=== PATIENT | female | born 1985 | race Caucasian/White ===

== ENCOUNTER 2019-10-14 10:32 | Observation (INO) ==
--- NOTE | 2019-10-13 08:33 | Anesthesiology Consultation ---
Date of Service October 13, 2019 Assessment & Plan (1) Encounter for pre-operative examination: Chart Review Chart Review: Acceptable Risk for Surgery (pending DOS testing ) and Patient NOT seen in Pre Admission Testing No preop testing order by surgeon- pt is next day add on. Due to BMI- will order CBC with diff, PRP and EKG for stat AM of surgery. - Check test AM DOS Per 10/13/19 nursing assessment, pt resides in [facility]. No recent travel. Uses PPE. No known Covid positive contacts or Covid related symptoms. Covid test 10/12/19= negative History Surgery Operation Date: 10/14/19 12:00 Proposed Procedures p Laparoscopic Appendectomy - Gloria Wall MD Height/Weight Height: 5 ft 1 in Weight: 97.522 kg Allergies Allergy/AdvReac Type Severity Reaction Status Date / Time No Known Allergies Allergy Unknown Verified 10/13/19 07:56 Medications Home Medications Medication Instructions Recorded Confirmed Last Taken No Known Home Medications 01/17/18 10/13/19 Unknown amoxicillin 875 mg PO BID 10/13/19 10/13/19 Unknown Past Medical History Medical History Appendicitis Lap appy planned 10/13 Past Surgical History Surgical History Hx laparoscopic cholecystectomy Hx of section Social History Smoking Status: Never smoker Do You Dip or Chew Tobacco: No Hx Alcohol Use: Yes alcohol intake frequency: holidays/special occasions only Hx Substance Use: No substance use type: does not use
[~2019-10-14 10:32] MED LIST: LACTATED RINGER'S 1,000 ML IV SCH; cefOXitin 2,000 MG in DEXTROSE 5% 50 ML IV SCH
[2019-10-14 11:12] LABS: Basophils # (auto) 0.04 K/uL (0-0.2); Basophils % (auto) 0.5 %; Eosinophils # (auto) 0.08 K/uL (0-0.5); Hematocrit (blood only) 41.8 % (37-47); Immature Granulocytes # (auto) 0.01 K/uL (0.00-0.02); Immature Granulocytes % (auto) 0.1 %; Lymphocytes # (auto) 2.29 K/uL (1.2-3.4); Lymphocytes % (auto) 29.4 %; Mean Corpuscular Hemoglobin 29.4 pg (25-34); Mean Corpuscular Volume 87.6 fL (80-100); Mean Platelet Volume 9.4 fL (7.4-10.4); Monocytes # (auto) 0.63 K/uL (0.11-0.59); Monocytes % (auto) 8.1 %; Neutrophils # (auto) 4.75 K/uL (1.4-6.5); Neutrophils % (auto) 60.9 %; Platelet Count 288 K/uL (130-400); RDW Coefficient of Variation 13.1 % (11.5-14.5); RDW Standard Deviation 42.2 fL (36.4-46.3); Red Blood Count 4.77 M/uL (4.2-5.4)
[2019-10-14 11:27] LABS: Mean Corpuscular Hgb Conc 33.5 g/dL (32-36)
[2019-10-14 11:28] LABS: BUN Creatinine Ratio 14.4 (10-20); Calcium 9.5 mg/dl (8.5-10.1); Est GFR (African American) 125.4; Est GFR (Non-African American) 108.2; Potassium 3.9 mmol/L (3.5-5.1)
[2019-10-14] MEDS ORDERED: cefOXitin 2,000 MG in DEXTROSE 5% 50 ML IV STA (11:51)
--- NOTE | 2019-10-14 11:51 | History & Physical Bridge Note ---
Date of Service October 14, 2019 History & Physical Bridge Note I have examined the patient, reviewed the History & Physical and in the interval since the performance of the History & Physical I have noted the following changes of clinical significance: no changes noted
[2019-10-14] MEDS ORDERED: LIDOCAINE HCL 1% 20 ML VIAL ONE (11:53)
[2019-10-14] MEDS ORDERED: MIDAZOLAM HCL 1 MG/ML 2ML VIAL ONE (11:53)
[2019-10-14] MEDS ORDERED: BUPIVACAINE 0.5 % 5 MG/1 ML MPF 30ML VIAL ONE (11:53)
[2019-10-14] MEDS ORDERED: BACITRACIN OINT 15 GM TUBE ONE (11:53)
[2019-10-14] MEDS ORDERED: ONDANSETRON INJ 2 MG/ML 2 ML VIAL ONE (11:56)
[2019-10-14] MEDS ORDERED: ROCURONIUM BROMIDE 10 MG/ML 5 ML VIAL IV ONE (11:56)
[2019-10-14] MEDS ORDERED: DEXAMETHASONE SOD INJ 4 MG/ML VIAL ONE (11:56)
[2019-10-14] MEDS ORDERED: PROPOFOL IV EMULSION 10 MG/ML 20 ML VIAL IV ONE (11:56)
[2019-10-14] MEDS ORDERED: fentaNYL citrate 100 MCG/2 ML VIAL ONE ×2 (11:56→12:23)
[2019-10-14] MEDS ORDERED: LIDOCAINE HCL 2% 2 ML VIAL/AMP(20MG/ML) INFIL ONE (11:56)
[2019-10-14] MEDS ORDERED: KETOROLAC 30 MG/ML VIAL IV PRN (12:01)
[2019-10-14] MEDS ORDERED: ATROPINE SULFATE 0.1 MG/ML 10ML SYR IV PRN (12:01)
[2019-10-14] MEDS ORDERED: ONDANSETRON INJ 2 MG/ML 2 ML VIAL IV PRN ×2 (12:01→13:13)
[2019-10-14] MEDS ORDERED: NEOSTIGMINE METHYLSULFATE 5 MG/5 ML SYR ONE (12:51)
[2019-10-14] MEDS ORDERED: GLYCOPYRROLATE 0.2 MG/ML VIAL ONE (12:51)
--- NOTE | 2019-10-14 13:08 | Post Operative Brief Note ---
Immediate Post Op Note v1 Date of Surgery October 14, 2019 Pre & Post Diagnosis Operation Date: 10/14/19 12:00 Pre-Op Diagnosis: Chronic Appendicitis Post-Op Diagnosis: Chronic Appendicitis I identified the patient and participated in the time-out.: Yes Procedure Operation Date: 10/14/19 12:00 Actual Procedures p Laparoscopic Appendectomy, Lysis of Adhesions(Not Applicable) - Gloria Wall MD Surgeon Gloria Wall MD Business Intelligence Administrator surgical services tech Estimated Blood Loss 5 Findings Consistent with Post-Op Diagnosis chronic appendicitis, intra-abdomen adhesion Fluids 1000ml Specimens appendix Anesthesia Type General Complications none Disposition Accompanied Patient To Recovery: Yes Disposition: Recovery Room Overlapping Procedure I was immediately available: during the entire case.
[2019-10-14] MEDS ORDERED: LABETALOL HCL IV 5 MG/ML 20ML IV ONE (13:31)
--- NOTE | 2019-10-14 13:41 | Operative Report (OR) ---
DATE OF OPERATION: 10/14/2019 PREOPERATIVE DIAGNOSIS: Chronic appendicitis. POSTOPERATIVE DIAGNOSIS: Chronic appendicitis. OPERATION: Laparoscopic appendectomy, lysis of adhesion. SURGEON: Gloria Wall MD. ANESTHESIA: General. WINDOWS CONSULTANT: bench repair technician. ESTIMATED BLOOD LOSS: About 5 mL. FINDINGS: Chronic appendicitis with enlarged appendix and intra-abdominal cavity adhesion. COMPLICATIONS: None. INDICATIONS FOR THE PROCEDURE: This is a 34-year-old female who presented with right lower quadrant pain. The patient had a CT scan diagnosis of acute appendicitis about 1 week ago and patient required to do the laparoscopic appendectomy, possible open. I did talk to the patient about the benefit, risk, alternate procedure. I indicated the risks may include but not limited to such as bleeding, infection, injury to the bowel, abscess, bowel obstruction, incisional hernia. The patient understands. She signed informed consent and I answered all questions. DETAILS OF PROCEDURE: We brought the patient to the OR, put the patient in the supine position. The patient received SCD on bilateral legs to prevent DVT. Also, patient received 2 g of cefoxitin IV for prophylactic antibiotic. The patient received general anesthesia without difficulty. The abdomen was prepped and draped in routine sterile fashion. After timeout, I injected local anesthesia by using 1% lidocaine mixed with 0.5% Marcaine just above the umbilicus. Then, I made a small incision just above the umbilicus, opened fascia, opened peritoneum under direct vision, put a Crystal trocar in, connected to CO2 to create pneumoperitoneum, flow rate at 6 liters per minute, pressure not more than 14 mmHg. Then, we put the camera in, looked around the abdomen showing there are significant adhesions just below the umbilicus. There is an old incision from the patient's gallbladder surgery in the past. At this moment, we put another two 5 mm trocars on the left lower quadrant area and we used Bovie to take down the adhesions to the anterior abdominal wall. Once we took down the adhesions, all of the omental fat attached to the abdominal wall. Once we took down, rechecked, no active bleeding and no injury to the bowel, then we could reach of the appendix. Now, we found the patient had a significantly enlarged appendix with appendix diameter of about 1.2 cm with chronic inflammation around the appendix that confirmed the diagnosis of chronic appendicitis. At this moment, we used the harmonic to take down appendiceal, rechecked, no active bleeding. Then, we used a 45 mm Endo-ANJANA staple for transection on the base of appendix, rechecked, the staple line intact, no active bleeding, no leak. Then we removed the appendix through the catch bag. Then we reinserted the Crystal trocar in, connected to CO2 to create pneumoperitoneum, again looked around the abdomen, no active bleeding, no leak from the staple line and no injury to the bowel. Then we removed all trocars under direct vision. No active bleeding from the trocar site. Pneumoperitoneum was released. Then I closed the umbilical incision, fascial layer by using #1 Vicryl [id number] x2, closed subcutaneous layer by using 2-0 Vicryl interruptedly, closed skin by using 4-0 Vicryl continuous running, closed another two 5 mm trocar site skin only by using 4-0 Vicryl. Then, we put the dressing on. The patient tolerated the procedure well. All instrument, needle and sponge count were correct x2 at the end of the case. The patient was transferred to recovery room in stable condition. The specimen was sent to pathology. After the procedure, I did talk to the patient and family member about the OR finding and the procedure we did, and I recommended that the patient stay overnight in the hospital, they understand and they agreed. I attest to the content of the Intraoperative Record and any orders documented therein. Any exception s are noted below.
[2019-10-14] MEDS: fentaNYL citrate 100 MCG/2 ML VIAL IV PRN ×2 (13:45→13:50)
--- NOTE | 2019-10-14 13:51 | Electrocardiogram Report ---
Test Reason : Blood Pressure : / mmHG Vent. Rate : 094 BPM Atrial Rate : 094 BPM P-R Int : 142 ms QRS Dur : 078 ms QT Int : 352 ms P-R-T Axes : 019 033 033 degrees QTc Int : 440 ms Normal sinus rhythm Normal ECG No previous ECGs available Confirmed by Kemal Morel ([id number]) on 10/14/2019 1:50:37 PM Referred By: Gloria Wall Confirmed By:Kemal Morel
--- NOTE | 2019-10-14 14:47 | Anesthesiology Progress Note ---
Date of Service October 14, 2019 Anesthesia Post Procedure Vital Signs Vital Signs: Temp Pulse Pulse Resp BP BP Pulse Ox 10/14/19 14:30 94 H 16 114/61 94 10/14/19 14:15 90 18 132/72 93 10/14/19 14:00 36.5 C 82 15 121/72 95 10/14/19 13:50 90 16 130/75 95 10/14/19 13:40 81 18 129/75 100 10/14/19 13:30 79 15 143/82 H 100 10/14/19 13:24 36.3 C L 97 H 16 137/99 95 10/14/19 10:51 36.7 C 99 H 18 150/100 H 98 Pain Intensity Abdomen: Pain Intensity: 3 Transfer of Care Handoff Completed per policy Notes Mental Status: alert / awake / arousable and participated in evaluation Patient Amnestic to Procedure: Yes Nausea / Vomiting: adequately controlled Pain: adequately controlled Airway Patency, RR, SpO2: stable & adequate BP & HR: stable & adequate Hydration State: stable & adequate Anesthetic Complications: no major complications apparent and Pt Satisfied with anesthetic care
[2019-10-14] MEDS ORDERED: HYDROmorphone INJ 0.5 MG/0.5 ML SYR IV PRN (15:15)
[2019-10-14] MEDS: OXYCODONE/ACETAMINOPHEN 5mg/325mg TAB PO PRN (18:20)
[2019-10-14] MEDS ORDERED: AMOXICILLIN 875 MG PO SCH (21:00)
[2019-10-15] MEDS: OXYCODONE/ACETAMINOPHEN 5mg/325mg TAB PO PRN (00:01)
[2019-10-15] MEDS: LACTATED RINGER'S 1,000 ML IV SCH ×2 (00:31→04:14)
[2019-10-15 06:18] LABS: Basophils # (auto) 0.01 K/uL (0-0.2); Basophils % (auto) 0.1 %; Hematocrit (blood only) 38.5 % (37-47); Hemoglobin 12.4 g/dL (12.0-16.0); Immature Granulocytes # (auto) 0.02 K/uL (0.00-0.02); Immature Granulocytes % (auto) 0.2 %; Lymphocytes # (auto) 1.11 K/uL (1.2-3.4); Lymphocytes % (auto) 11.1 %; Mean Corpuscular Hgb Conc 32.2 g/dL (32-36); Mean Platelet Volume 9.5 fL (7.4-10.4); Monocytes # (auto) 0.52 K/uL (0.11-0.59); Monocytes % (auto) 5.2 %; Neutrophils % (auto) 83.4 %; Platelet Count 314 K/uL (130-400); RDW Coefficient of Variation 13.5 % (11.5-14.5); RDW Standard Deviation 44.5 fL (36.4-46.3); Red Blood Count 4.28 M/uL (4.2-5.4); White Blood Count 9.96 K/uL (4.8-10.8)
--- NOTE | 2019-10-15 08:21 | Anesthesiology Progress Note ---
Date of Service October 15, 2019 Anesthesia Post Procedure Vital Signs Vital Signs: Temp Pulse Pulse Pulse Resp BP BP 10/15/19 07:41 36.7 C 77 16 100/61 10/15/19 03:13 36.8 C 80 18 119/72 10/14/19 23:26 36.7 C 74 18 128/86 10/14/19 18:10 37.0 C 103 H 18 112/71 10/14/19 16:58 37.0 C 100 H 16 114/74 10/14/19 16:00 36.9 C 95 H 16 120/75 10/14/19 15:30 36.9 C 95 H 16 122/75 10/14/19 15:00 36.7 C 95 H 16 124/77 10/14/19 14:45 85 18 117/63 10/14/19 14:30 94 H 16 114/61 10/14/19 14:15 90 18 132/72 10/14/19 14:00 36.5 C 82 15 121/72 10/14/19 13:50 90 16 130/75 10/14/19 13:40 81 18 129/75 10/14/19 13:30 79 15 143/82 H 10/14/19 13:24 36.3 C L 97 H 16 137/99 10/14/19 10:51 36.7 C 99 H 18 150/100 H Pulse Ox 10/15/19 07:41 97 10/15/19 03:13 96 10/14/19 23:26 97 10/14/19 18:10 95 10/14/19 16:58 95 10/14/19 16:00 95 10/14/19 15:30 95 10/14/19 15:00 95 10/14/19 14:45 94 10/14/19 14:30 94 10/14/19 14:15 93 10/14/19 14:00 95 10/14/19 13:50 95 10/14/19 13:40 100 10/14/19 13:30 100 10/14/19 13:24 95 10/14/19 10:51 98 Pain Intensity Abdomen: Pain Intensity: 2 Notes Mental Status: alert / awake / arousable and participated in evaluation Patient Amnestic to Procedure: Yes Nausea / Vomiting: adequately controlled Pain: adequately controlled Airway Patency, RR, SpO2: stable & adequate BP & HR: stable & adequate Hydration State: stable & adequate Anesthetic Complications: no major complications apparent and Pt Satisfied with anesthetic care
[2019-10-15] MEDS ORDERED: ACETAMINOPHEN 325 MG TAB PO PRN (08:34)
[2019-10-15] MEDS ORDERED: DOCUSATE SODIUM 100 MG CAP PO ONE (09:57)
--- NOTE | 2019-10-15 10:06 | Discharge Summary ---
Date of Service October 15, 2019 Admission HPI Per Admitting Provider Chula presented to [facility] for outpatient laparoscopic appendectomy for history of chronic appendicitis. Patient was taken to operating room by Dr. Wall for laparoscopic appendectomy. Principal Diagnosis Chronic appendicitis Discharge Exam Constitutional WD/WN, vitals as above no acute distress Respiratory normal respiratory effort; no respiratory distress Gastrointestinal (Abdomen) Inspection/Auscultation: abdomen normal to inspection and + abdominal surgical incision (covered with dry dressings); abdomen not distended Percussion/Palpation: + abdomen tender (very mild at incision sites) and abdomen soft; no guarding and abdomen not rigid Skin no rashes, warm and dry Psychiatric A+Ox3, euthymic affect Discharge Data Allergies Allergy/AdvReac Type Severity Reaction Status Date / Time No Known Allergies Allergy Unknown Verified 10/14/19 10:49 Procedures Performed Operation Date: 10/14/19 12:00 Actual Procedures p Laparoscopic Appendectomy, Lysis of Adhesions(Not Applicable) - Gloria Wall MD Hospital Course (1) Chronic appendicitis: Patient taken to operating room for laparoscopic appendectomy by Dr. Wall. Patient found to have intra-abdominal adhesions to the anterior abdominal wall from prior laparoscopic cholecystectomy which were taken down. Appendix showed signs of chronic inflammation and dilatation. Patient tolerated procedure well and was transferred to recovery then to medical/surgical floor for postoperative care. Her diet was advanced to clear liquids. PO Percocet and IV DIlaudid prn pain. IV Zofran prn nausea. SCDs and activity as tolerated. She was also given IV Cefoxitin for postop antibiotic dose x 2. POD # 1 , vitals stable, afebrile. Pain mild and controlled with PO Percocet. Tolerated clear liquids. Ambulating and urianting without difficulty. Patient was discharged home on POD # 1 in stable condition. Total Time Total Time Spent Total Time Spent (In Minutes): 20 Discharge Plan Discharge Items Patient Disposition: Home - Self-Care Reason For Visit: Chronic Appendicitis Discharge Diagnosis: Chronic appendicitis Activity: Per Instructions section Non-emergency contact: Surgeon Call non-emergency contact if: your pain is not controlled, your pain is worsening, your pain is concerning for you, you have a fever, your temperature is above 101, your wound has increased redness, your wound has increased drainage and your wound pain has increased Follow-up/Referrals: Fanny Bailon, [Primary Care Provider] - Diet: Regular Addtl Attending Provider Instructions: Post-Surgical ~Discharge Instructions Activity Recommendations: - lifting limitation: (25 pounds for 4 weeks), - exercise/sex/sports limit: (nonstrenuous for 2 weeks), - driving or machine use limit: (none for 1 week or until you are pain free or not taking narcotic pain medication), - Shower/bathe limit: (june shower beginning Friday) Diet: - Resume previous diet SPECIAL CARE INSTRUCTIONS: - May shower beginning Friday. Sponge bath around incisions and wash hair in meantime. On Friday, remove outer dressings and shower. Let water run over area and pat dry. - Leave steri strips on for one week and then remove. - Call the surgeon's office with any questions or concerns - - (ex. temperature higher than 101 degrees F, excessive bleeding or pain). MEDICATIONS: - Resume previous medications unless instructed otherwise by your surgeon. - You may take extra strength Tylenol or Ibuprofen as needed for mild pain -650 mg Tylenol every 6 hours as needed - Ibuprofen 600 mg every 6 hours with food - Percocet 1 every 4 hours, as needed for moderate to severe pain - Recommend stool softener (Colace) daily while taking narcotic pain medication. FOLLOW UP VISIT: - If not already scheduled, please call the office to schedule a two week follow-up appointment. Office number Pending Studies at Discharge: Yes (appendix pathology, will be reviewed at follow-up visit) Stand-Alone Forms: My [facility], Work/School Release (Inpt), Smoking Cessation Medications and DC Order Prescriptions: New oxycodone-acetaminophen 5-325 mg tablet 1 tab PO Q4H PRN (Reason: pain) Qty: 10 RF: 0 Discontinued amoxicillin 875 mg Tablet 875 mg PO BID RF: 0 No Action No Known Home Medications RF: 0 Discharge Orders: Discharge Order (Routine); Ordered 10/15/19 Ordered By: Sasha Rainey Admission Data Admit Date/Time: 10/14/19 13:13 Attending Provider: Gloria Wall Admit Provider: Gloria Wall Primary Care Provider: Fanny Bailon
== END 2019-10-15 11:45 | disposition home or self-care (01) ==
LOC: ASU 10:32 → 3N 10:32

== ENCOUNTER 2022-03-26 05:35 | Inpatient (IN) ==
--- NOTE | 2022-03-18 14:00 | Anesthesiology Consultation ---
Date of Service March 18, 2022 Assessment & Plan (1) Encounter for pre-operative examination: COVID screening: Per assessment on 03/18: No known COVID-19 positive contacts or current COVID-19 related symptoms. Travel screen negative. Patient vaccinated. At surgeon discretion if preop Covid testing being done. Chart Review Chart Review: viscose department worker initiated History Surgery Operation Date: 03/26/22 07:30 Proposed Procedures p Repeat Section - Home Salinas MD Height/Weight Height: 5 ft 1 in Weight: 103.419 kg Allergies Allergy/AdvReac Type Severity Reaction Status Date / Time No Known Allergies Allergy Unknown Verified 03/18/22 13:18 Medications Home Medications Medication Instructions Recorded Confirmed Last Taken 1 cap PO QPM 03/18/22 03/18/22 Unknown insulin detemir U-100 100 unit/mL 50 unit subcut HS 03/18/22 03/18/22 Unknown subcutaneous solution (Levemir U-100 Insulin) Past Medical History Medical History (Updated 03/18/22 @ 14:04 by Leda Schofield) Conductive hearing loss Gestational diabetes Past Family History Family History Other No family history of adverse response to anesthesia Past Surgical History Surgical History History of appendectomy Hx laparoscopic cholecystectomy Hx of section Social History Smoking Status: Never smoker Do You Dip or Chew Tobacco: No Hx Alcohol Use: No alcohol intake frequency: holidays/special occasions only Hx Substance Use: No substance use type: does not use
[2022-03-26] MEDS ORDERED: LACTATED RINGER'S 1,000 ML IV SCH (05:45)
[2022-03-26] MEDS ORDERED: CITRIC ACID/SODIUM CITRATE 15 ML UDC PO SCH (06:00)
[2022-03-26 06:33] LABS: Basophils # (auto) 0.03 K/uL (0-0.2); Basophils % (auto) 0.4 %; Eosinophils # (auto) 0.07 K/uL (0-0.50); Hematocrit (blood only) 33.5 % (37.0-47.0); Hemoglobin 11.4 g/dl (12.0-16.0); Immature Granulocytes # (auto) 0.02 K/uL (0.01-0.20); Immature Granulocytes % (auto) 0.3 %; Lymphocytes % (auto) 25.3 %; Mean Corpuscular Hemoglobin 29.3 pg (25.0-34.0); Mean Corpuscular Volume 86.1 fL (80.0-100.0); Mean Platelet Volume 9.7 fL (9.4-12.4); Monocytes # (auto) 0.66 K/uL (0.11-0.59); Monocytes % (auto) 9.8 %; Neutrophils # (auto) 4.23 K/uL (1.40-6.50); Neutrophils % (auto) 63.2 %; Platelet Count 253 K/uL (130-400); RDW Coefficient of Variation 13.3 % (11.5-14.5); RDW Standard Deviation 41.7 fL (36.4-46.3); Red Blood Count 3.89 M/uL (4.20-5.40); White Blood Count 6.71 K/ul (4.8-10.8)
[2022-03-26] MEDS ORDERED: SODIUM CHLORIDE 0.9% 250 ML IV PRN (06:35)
[2022-03-26] MEDS ORDERED: ONDANSETRON INJ 2 MG/ML 2 ML VIAL ONE (06:57)
[2022-03-26] MEDS ORDERED: OXYTOCIN 10 UNITS/ML 10ML VIAL ONE (06:57)
[2022-03-26] MEDS ORDERED: KETOROLAC 30 MG/ML VIAL ONE (06:57)
[2022-03-26] MEDS ORDERED: PHENYLEPHRINE HCL 10 MG/ML VIAL ONE (06:57)
[2022-03-26] MEDS ORDERED: MoRPHine SULFATE PF 1 MG/ML 10 ML AMP/VIAL ONE (06:58)
[2022-03-26] MEDS ORDERED: fentaNYL citrate 100 MCG/2 ML VIAL ONE (06:58)
--- NOTE | 2022-03-26 07:33 | History & Physical Bridge Note ---
Date of Service March 26, 2022 History & Physical Bridge Note I have examined the patient, reviewed the History & Physical and in the interval since the performance of the History & Physical I have noted the following changes of clinical significance: no changes noted
[2022-03-26] MEDS ORDERED: LIDOCAINE 2%/EPINEPHRINE 1:200,000 20 ML SDV ONE (08:43)
[2022-03-26] MEDS ORDERED: SODIUM BICARBONATE 8.4% INJ 50 MEQ/50 ML VIAL ONE (08:43)
[2022-03-26] MEDS ORDERED: ACETAMINOPHEN 1,000 MG/100 ML VIAL IV PRN (08:51)
[2022-03-26] MEDS ORDERED: PROMETHAZINE HCL 12.5 MG in SODIUM CHLORIDE 0.9% 50 ML IV PRN (08:51)
[2022-03-26] MEDS ORDERED: LACTATED RINGER'S 500 ML IV PRN (08:51)
[2022-03-26] MEDS ORDERED: NALOXONE HCL 0.08 MG in SYRINGE 1.8 ML IV PRN (08:51)
[2022-03-26] MEDS ORDERED: HYDROmorphone INJ 0.5 MG/0.5 ML SYR IV PRN (08:51)
[2022-03-26] MEDS ORDERED: NALOXONE HCL 1 MG in SODIUM CHLORIDE 0.9% 1000ML 1,000 ML IV PRN (08:51)
[2022-03-26] MEDS ORDERED: ONDANSETRON INJ 2 MG/ML 2 ML VIAL IV PRN (08:51)
[2022-03-26] MEDS ORDERED: NALOXONE HCL 0.4 MG/1 ML VIAL/CARP IV PRN (08:51)
[2022-03-26] MEDS ORDERED: diphenhydrAMINE 50 MG/ML VIAL IV PRN (08:51)
[2022-03-26] MEDS ORDERED: ePHEDrine sulfate 50 MG/ML AMP IV PRN (08:51)
[2022-03-26] MEDS ORDERED: MoRPHine SULFATE PF 1 MG/ML 10 ML AMP/VIAL EPI ONE (08:51)
[2022-03-26] MEDS ORDERED: NALBUPHINE HCL INJ 10 MG/ML AMP IV PRN (08:51)
[2022-03-26] MEDS ORDERED: NO NARCOTICS OR SEDATIVES SCH (09:00)
[2022-03-26] MEDS ORDERED: SODIUM CHLORIDE 0.9% 1000ML 1,000 ML IV SCH (09:00)
[2022-03-26] MEDS ORDERED: DC INTRASPINAL MORPHINE SCH (09:00)
[2022-03-26] MEDS ORDERED: MAGNESIUM HYDROXIDE SUSP 30 ML UDC PO PRN (09:46)
[2022-03-26] MEDS ORDERED: SENNA 8.6 MG TAB PO PRN (09:46)
[2022-03-26] MEDS ORDERED: DIPHTHERIA/TETANUS/PERTUSSIS 0.5mL SYR/VIAL (Age 7+yrs) IM ONE (09:46)
[2022-03-26] MEDS ORDERED: HYDROCORTISONE ACETATE 25 MG SUPP PR PRN (09:46)
[2022-03-26] MEDS ORDERED: BENZOCAINE 20% AER SPR 82.5 GM CAN EXT PRN (09:46)
--- NOTE | 2022-03-26 09:57 | Post Operative Brief Note ---
Immediate Post Op Note v1 Date of Surgery March 26, 2022 Pre & Post Diagnosis Operation Date: 03/26/22 07:30 <No data on this case meets the specified criteria> I identified the patient and participated in the time-out.: Yes Procedure Operation Date: 03/26/22 07:30 Actual Procedures p Repeat Section of live female child at 0846 - Home Lagos MD s Bilateral salpingectomy - Home Salinas MD Surgeon Home Salinas MD Compressor Service Technician CLAUDIA Garibay Estimated Blood Loss 700 Findings Consistent with Post-Op Diagnosis Drains Gale Catheter Anesthesia Type Labor Epidural Complications none Disposition Accompanied Patient To Recovery: Yes
--- NOTE | 2022-03-26 10:35 | Operative Report (OR) ---
DATE OF SURGERY: 03/26/2022. PREOPERATIVE DIAGNOSES: The patient is a 36-year-old G2, P1-0-0-1, at 39 weeks and 1 day of gestation, who has a history of a prior section and desired for a repeat section and permanent sterilization. POSTOPERATIVE DIAGNOSES: The patient is a 36-year-old G2, P1-0-0-1, at 39 weeks and 1 day of gestation, who has a history of a prior section and desired for a repeat section and permanent sterilization. PROCEDURE: Repeat low transverse with Pfannenstiel skin incision, extensive lysis of adesions and bilateral salpingectomy. SURGEON: Home Salinas MD TREER: CLAUDIA Garibay and CLAUDIA Kim ESTIMATED BLOOD LOSS: 700 mL FLUIDS: 1500 mL of lactated Ringer's. DRAINS: Gale catheter drained 500 mL of clear urine. ANESTHESIA: Epidural. ANESTHESIOLOGIST: Dr. Rivera. COMPLICATIONS: None. FINDINGS: Baby was a viable female delivered at 08:46 a.m. in cephalic presentation. Apgars were 9/9, weight is 3339 gr. Maternal findings: There were adhesions between the anterior uterine serosa and parietal peritoneum as well as between the omentum and the uterine wall and otherwise normal uterus, fallopian tubes, and ovaries. DESCRIPTION OF PROCEDURE: The patient was taken to the operating room where epidural anesthesia was given by Dr. Rivera. She was placed in dorsal supine position with a leftward tilt. She was prepared and draped in the usual sterile fashion. A Pfannenstiel skin incision was made from the old incision scar and carried through to the underlying layer of fascia with the Bovie. Fascia was incised in the midline and incision was extended laterally with the help of Shine scissors. Upper aspect of the fascial incision was grasped with 2 Bereket clamps, elevated, and underlying rectus muscles were dissected off sharply with Shine scissors and bluntly with fingers. Same thing was done on the lower aspect of the fascial incision. The peritoneum was already open and it was entered with 2 fingers and elevated, and then it was extended downwards until the adhesion. There were adhesions between the anterior uterus and anterior abdominal wall to the parietal peritoneum. Those were reduced gently with a tip of Metzenbaum scissors, while holding up with my fingers around the adhesions, making sure there was no bladder under it. It was brought down until to the lower uterine segment. While doing that, vesicouterine peritoneum was already opened due to being involved in this adhesion. There were some omentum edges attached to the lateral uterine carr. Those were also held up and reduced with a tip of hemostat and they were hemostatic. Then we made sure that we have enough opening on the abdominal wall and the bladder was down into the pelvis and far from this opening. An Altaf abdominal retractor was placed to the abdominal wall to provide retraction during surgery and then the lower uterine segment was incised in a transverse fashion. Incision was extended laterally with the help of bandage scissors. Membranes were ruptured. Clear fluid was obtained. Baby's head was delivered without difficulty. The left arm and shoulder was delivered together without difficulty and then whole baby came out easily. Mouth and nose were suctioned. Cord was clamped x2 and cut at 1 minute delay. Baby was vigorously moving and crying at that point and then baby was taken to the pediatric team with Dr. Stephenson. The placenta was delivered manually as intact and complete. Uterus was exteriorized and cleared of all clots and debris. Uterine incision was repaired with 0 Vicryl in a running locked fashion and a second layer was placed, another 0 Vicryl to imbricate the first layer and it was hemostatic and the cul-de-sac was irrigated with warm normal saline and suctioned. Both fallopian tubes and ovaries were checked to be normal. Per patient's request for sterilization, the fallopian tubes were held with Emile clamps and dissected off with the handheld LigaSure device fro, avascular sites of mesosalpinx. bilaterally. They were sent to the pathology and the mesosalpinx was hemostatic bilaterally. Bilateral salpingectomy was completed. No bleeding happened and then incision was checked to be hemostatic again. Uterus was returned to the patient's abdomen. It was irrigated with warm normal saline and suctioned. Incision was checked again, hemostatic. Parietal peritoneum was reapproximated with 0 Vicryl in a running fashion and the rectus muscles were reapproximated with 2-0 Vicryl in a running fashion. Excellent hemostasis was achieved. Then, the rectus fascia was reapproximated with #1 Vicryl in a running fashion. Subcuticular fat tissue was brought together with a 3-0 Vicryl in a running fashion. The skin was closed with 4-0 Monocryl in a subcuticular fashion and the incision was covered with a ISABELLE dressing. The patient tolerated the procedure well. Sponge, lap, needle count was correct x3. She was given 3 grams of cefazolin before surgery. She was taken to recovery room in stable condition. No complications happened and I was present during whole procedure. My Assistants were needed for retraction, aid during delivery of the and hemostasis during surgery. Job ID: [id number] [facility]
[2022-03-26] MEDS ORDERED: SURGICEL ABSORB HEMOSTAT 2IN X 14IN TOP ONE (10:39)
[2022-03-26] MEDS ORDERED: ARISTA ABSORBABLE HEMOSTAT 3GM TOP ONE (10:39)
[2022-03-26] MEDS: OXYTOCIN 20 UNITS in LACTATED RINGER'S 1,000 ML IV SCH (11:18)
--- NOTE | 2022-03-26 11:57 | Anesthesia Procedure Note ---
Date of Service March 26, 2022 Anesthesia Post Epidural Note Vital Signs Vital Signs: Temp Pulse Resp BP Pulse Ox 98.2 F 90 18 121/59 L 96 03/26/22 10:00 03/26/22 11:51 03/26/22 11:30 03/26/22 11:49 03/26/22 11:51 Pain Intensity Lower Abdomen: Pain Intensity: 1 Notes Mental Status: alert / awake / arousable and participated in evaluation Nausea / Vomiting: adequately controlled Pain: adequately controlled Airway Patency, RR, SpO2: stable & adequate BP & HR: stable & adequate Hydration State: stable & adequate Neuraxial Anesthesia: was administered and sensory block is resolving Anesthetic Complications: no major complications apparent and Pt Satisfied with anesthetic care Epidural: Removed without complications and With tip intact
--- NOTE | 2022-03-26 11:57 | Anesthesiology Progress Note ---
Date of Service March 26, 2022 Anesthesia Post Procedure Vital Signs Vital Signs: Temp Pulse Resp BP Pulse Ox 03/26/22 11:30 18 03/26/22 10:50 19 03/26/22 10:40 20 03/26/22 10:30 18 03/26/22 10:20 19 03/26/22 11:00 18 03/26/22 10:10 18 03/26/22 10:00 98.2 F 20 03/26/22 11:51 90 96 03/26/22 11:49 91 H 121/59 L 03/26/22 11:46 96 03/26/22 11:46 89 03/26/22 11:46 94 H 94 03/26/22 11:41 98 H 96 03/26/22 11:39 96 H 123/58 L 03/26/22 11:37 99 H 93 03/26/22 11:36 92 H 99 03/26/22 11:31 93 H 96 03/26/22 11:29 81 137/67 03/26/22 11:26 101 H 98 03/26/22 11:21 89 98 03/26/22 11:19 110 H 137/64 03/26/22 11:16 92 H 100 03/26/22 11:11 81 99 03/26/22 11:09 85 132/68 03/26/22 11:06 85 99 03/26/22 11:01 90 99 03/26/22 10:59 83 132/63 03/26/22 10:56 90 99 03/26/22 10:51 94 H 98 03/26/22 10:49 83 131/59 L 03/26/22 10:46 90 99 03/26/22 10:41 90 99 03/26/22 10:39 90 131/63 03/26/22 10:36 92 H 99 03/26/22 10:31 89 98 03/26/22 10:29 88 130/72 03/26/22 10:26 106 H 98 03/26/22 10:21 92 H 98 03/26/22 10:20 90 122/74 03/26/22 10:19 96 H 89/58 L 03/26/22 10:16 93 H 100 03/26/22 10:11 85 100 03/26/22 10:12 84 117/58 L 03/26/22 10:09 90 93 03/26/22 10:06 87 100 03/26/22 10:01 90 100 03/26/22 09:59 83 118/56 L 03/26/22 09:56 168 H 99 03/26/22 05:56 82 131/78 03/26/22 05:51 98.1 F 18 Pain Intensity Lower Abdomen: Pain Intensity: 1 Transfer of Care Handoff Completed per policy Notes Mental Status: alert / awake / arousable and participated in evaluation Patient Amnestic to Procedure: Yes Nausea / Vomiting: adequately controlled Pain: adequately controlled Airway Patency, RR, SpO2: stable & adequate BP & HR: stable & adequate Hydration State: stable & adequate Neuraxial Anesthesia: was administered and sensory block is resolving Anesthetic Complications: no major complications apparent and Pt Satisfied with anesthetic care
[2022-03-26] MEDS: SIMETHICONE 80 MG CHEW PO SCH ×3 (13:16→20:50)
[2022-03-26] MEDS: ceFAZolin 2000MG 2,000 MG/15 ML SYR IV SCH ×2 (15:05→22:55)
[2022-03-26] MEDS: KETOROLAC 30 MG/ML VIAL IV PRN (19:52)
[2022-03-26] MEDS: DOCUSATE SODIUM 100 MG CAP PO SCH (20:50)
[2022-03-27] MEDS: OXYTOCIN 20 UNITS in LACTATED RINGER'S 1,000 ML IV SCH (01:41)
[2022-03-27] MEDS: KETOROLAC 30 MG/ML VIAL IV PRN (01:46)
[2022-03-27] MEDS ORDERED: PROMETHAZINE HCL 25 MG in SODIUM CHLORIDE 0.9% 50 ML IV PRN (02:52)
[2022-03-27] MEDS ORDERED: MEPERIDINE HCL 50 MG/ML CARP IV PRN (02:52)
[2022-03-27] MEDS ORDERED: ONDANSETRON INJ 2 MG/ML 2 ML VIAL IV PRN (02:52)
[2022-03-27] MEDS ORDERED: diphenhydrAMINE Capsule 25 MG CAP PO PRN (02:52)
[2022-03-27] MEDS ORDERED: diphenhydrAMINE 50 MG/ML VIAL IV PRN (02:52)
[2022-03-27] MEDS: IBUPROFEN 600 MG TAB PO PRN ×5 (05:48→23:18)
[2022-03-27] MEDS: oxyCODONE/ACETAMINOPHEN 5mg/325mg TAB PO PRN ×5 (05:49→23:18)
[2022-03-27 06:42] LABS: Basophils # (auto) 0.02 K/uL (0-0.2); Basophils % (auto) 0.1 %; Eosinophils # (auto) 0.02 K/uL (0-0.50); Eosinophils % (auto) 0.1 %; Hematocrit (blood only) 29.7 % (37.0-47.0); Hemoglobin 10.1 g/dl (12.0-16.0); Immature Granulocytes # (auto) 0.04 K/uL (0.01-0.20); Immature Granulocytes % (auto) 0.3 %; Lymphocytes # (auto) 1.31 K/uL (1.2-3.4); Lymphocytes % (auto) 9.3 %; Mean Corpuscular Hemoglobin 29.4 pg (25.0-34.0); Mean Corpuscular Volume 86.3 fL (80.0-100.0); Mean Platelet Volume 9.5 fL (9.4-12.4); Monocytes % (auto) 7.1 %; Neutrophils # (auto) 11.74 K/uL (1.40-6.50); Neutrophils % (auto) 83.1 %; Platelet Count 209 K/uL (130-400); RDW Coefficient of Variation 13.5 % (11.5-14.5); RDW Standard Deviation 42.7 fL (36.4-46.3); Red Blood Count 3.44 M/uL (4.20-5.40); White Blood Count 14.13 K/ul (4.8-10.8)
[2022-03-27] MEDS: ceFAZolin 2000MG 2,000 MG/15 ML SYR IV SCH (07:38)
[2022-03-27] MEDS: FERROUS SULFATE 325 MG TAB PO SCH (10:19)
[2022-03-27] MEDS: PRENATAL VITAMIN 1 TAB PO SCH (10:20)
[2022-03-27] MEDS: DOCUSATE SODIUM 100 MG CAP PO SCH ×2 (10:20→20:54)
[2022-03-27] MEDS: SIMETHICONE 80 MG CHEW PO SCH ×4 (10:20→20:54)
--- NOTE | 2022-03-27 10:27 | Obstetrical Progress Note ---
Date of Service March 27, 2022 Assessment & Plan Admission and Anticipated Discharge Date Admission Date: March 26, 2022 Subjective Patient is seen and examined. She feels well, no complaints. Pain is under control with oral meds. Ambulating without dizziness. Voiding without difficulty Tolerating regular diet with out N&V Flatus + BM neg Bleeding is minimal No fever/ chills/ CP/ SOB/ N&V/ Leg pain Breast and bottle feeding without problems Vital Signs Temp Pulse Resp BP Pulse Ox O2 Del Method 03/27/22 07:40 36.8 C 96 H 18 132/72 96 Room Air 03/27/22 03:26 37.1 C 109 H 16 122/74 95 Room Air 03/27/22 01:24 14 91 03/27/22 00:15 16 95 03/26/22 23:15 16 96 03/26/22 22:58 18 96 03/26/22 22:58 37.2 C 99 H 18 121/70 96 Room Air Lab Results 03/26/22 03/26/22 03/26/22 Range/Units 05:50 05:53 06:06 WBC (4.8-10.8) K/ul RBC (4.20-5.40) M/uL Hgb (12.0-16.0) g/dl Hct (37.0-47.0) % MCV (80.0-100.0) fL MCH (25.0-34.0) pg MCHC (32.0-36.0) g/dL RDW Std Deviation (36.4-46.3) fL RDW Coeff of Anselmo (11.5-14.5) % Plt Count (130-400) K/uL MPV (9.4-12.4) fL Immature Gran % (Auto) % Neut % (Auto) % Lymph % (Auto) % [place] % (Auto) % Eos % (Auto) % Baso % (Auto) % Neut # (Auto) (1.40-6.50) K/uL Lymph # (Auto) (1.2-3.4) K/uL [place] # (Auto) (0.11-0.59) K/uL Eos # (Auto) (0-0.50) K/uL Baso # (Auto) (0-0.2) K/uL Immature Gran # (Auto) (0.01-0.20) K/uL POC Glucose 84 (70-99) mg/dl SARS-CoV-2, RNA, NAAT NEGATIVE (NEGATIVE) Blood Type O Positive Antibody Screen NEGATIVE Crossmatch See Detail 03/26/22 03/26/22 03/27/22 Range/Units 06:06 10:21 05:46 WBC 6.71 14.13 H (4.8-10.8) K/ul RBC 3.89 L 3.44 L (4.20-5.40) M/uL Hgb 11.4 L 10.1 L (12.0-16.0) g/dl Hct 33.5 L 29.7 L (37.0-47.0) % MCV 86.1 86.3 (80.0-100.0) fL MCH 29.3 29.4 (25.0-34.0) pg MCHC 34.0 34.0 (32.0-36.0) g/dL RDW Std Deviation 41.7 42.7 (36.4-46.3) fL RDW Coeff of Anselmo 13.3 13.5 (11.5-14.5) % Plt Count 253 209 (130-400) K/uL MPV 9.7 9.5 (9.4-12.4) fL Immature Gran % (Auto) 0.3 0.3 % Neut % (Auto) 63.2 83.1 % Lymph % (Auto) 25.3 9.3 % [place] % (Auto) 9.8 7.1 % Eos % (Auto) 1.0 0.1 % Baso % (Auto) 0.4 0.1 % Neut # (Auto) 4.23 11.74 H (1.40-6.50) K/uL Lymph # (Auto) 1.70 1.31 (1.2-3.4) K/uL [place] # (Auto) 0.66 H 1.00 H (0.11-0.59) K/uL Eos # (Auto) 0.07 0.02 (0-0.50) K/uL Baso # (Auto) 0.03 0.02 (0-0.2) K/uL Immature Gran # (Auto) 0.02 0.04 (0.01-0.20) K/uL POC Glucose 92 (70-99) mg/dl SARS-CoV-2, RNA, NAAT (NEGATIVE) Blood Type Antibody Screen Crossmatch PE: General: Alert, orientedx3, NAD CVS: S1S2 RRR Lungs; CTAB Abd: soft, NT, ND, BS+, fundus firm, below Umbilicus Incision/ Dressing: Clean, dry, intact Perineum intact, Lochia rubra minimal Ext; NT, no edema AP: 36 yo s/p RC Section, Bilateral salpingectmoy, pod# 1 VSS Afebrile doing well Continue routine postop care Encourage ambulation, PO intake All questions were answered D/C home tomorrow Results & Data ([facility]) Vital Signs (Past 12 Hours) Vital Signs Temp Pulse Resp BP Pulse Ox O2 Del Method 03/27/22 07:40 36.8 C 96 H 18 132/72 96 Room Air 03/27/22 03:26 37.1 C 109 H 16 122/74 95 Room Air 03/27/22 01:24 14 91 03/27/22 00:15 16 95 03/26/22 23:15 16 96 03/26/22 22:58 18 96 03/26/22 22:58 37.2 C 99 H 18 121/70 96 Room Air
[2022-03-27] MEDS ORDERED: bisacodyL 5 MG TABEC PO SCH (20:00)
[2022-03-28 06:12] LABS: Hematocrit (blood only) 29.7 % (37.0-47.0); Hemoglobin 10.1 g/dl (12.0-16.0)
[2022-03-28] MEDS: oxyCODONE/ACETAMINOPHEN 5mg/325mg TAB PO PRN ×3 (06:52→20:58)
[2022-03-28] MEDS: IBUPROFEN 600 MG TAB PO PRN ×3 (06:52→20:57)
[2022-03-28] MEDS: DOCUSATE SODIUM 100 MG CAP PO SCH ×2 (08:58→20:57)
[2022-03-28] MEDS: FERROUS SULFATE 325 MG TAB PO SCH (08:58)
[2022-03-28] MEDS: SIMETHICONE 80 MG CHEW PO SCH ×4 (08:58→20:57)
[2022-03-28] MEDS: PRENATAL VITAMIN 1 TAB PO SCH (08:58)
[2022-03-28] MEDS ORDERED: bisacodyL 10 MG SUPP PR PRN (09:47)
--- NOTE | 2022-03-28 10:22 | Obstetrical Progress Note ---
Date of Service March 28, 2022 Subjective Ambulation: ambulating normally Voiding: no voiding problems Passing Gas:: Yes Diet Tolerance:: regular diet Feeding Type:: breast feeding Current Pain Level(1-10): 0 doing well Physical Exam Constitutional WD/WN, vitals as above Gastrointestinal (Abdomen) Inspection/Auscultation: abdomen normal to inspection and + abdominal surgical incision Musculoskeletal Extremities: extremities normal to inspection Skin no rashes, warm and dry Neurologic patellar DTR's 2+ bilat, sensation intact Psychiatric A+Ox3, euthymic affect Results & Data ([facility]) Vital Signs (Past 12 Hours) Vital Signs Temp Pulse Resp BP Pulse Ox O2 Del Method 03/28/22 08:50 36.6 C 103 H 16 122/75 96 Room Air 03/27/22 23:10 36.5 C 88 18 133/84 98 Room Air Laboratory Results 03/26/22 03/26/22 03/26/22 05:50 05:53 06:06 WBC RBC Hgb Hct MCV MCH MCHC RDW Std Deviation RDW Coeff of Anselmo Plt Count MPV Immature Gran % (Auto) Neut % (Auto) Lymph % (Auto) [place] % (Auto) Eos % (Auto) Baso % (Auto) Neut # (Auto) Lymph # (Auto) [place] # (Auto) Eos # (Auto) Baso # (Auto) Immature Gran # (Auto) POC Glucose 84 SARS-CoV-2, RNA, NAAT NEGATIVE Blood Type O Positive Antibody Screen NEGATIVE Crossmatch See Detail 03/26/22 03/26/22 03/27/22 06:06 10:21 05:46 WBC 6.71 14.13 H RBC 3.89 L 3.44 L Hgb 11.4 L 10.1 L Hct 33.5 L 29.7 L MCV 86.1 86.3 MCH 29.3 29.4 MCHC 34.0 34.0 RDW Std Deviation 41.7 42.7 RDW Coeff of Anselmo 13.3 13.5 Plt Count 253 209 MPV 9.7 9.5 Immature Gran % (Auto) 0.3 0.3 Neut % (Auto) 63.2 83.1 Lymph % (Auto) 25.3 9.3 [place] % (Auto) 9.8 7.1 Eos % (Auto) 1.0 0.1 Baso % (Auto) 0.4 0.1 Neut # (Auto) 4.23 11.74 H Lymph # (Auto) 1.70 1.31 [place] # (Auto) 0.66 H 1.00 H Eos # (Auto) 0.07 0.02 Baso # (Auto) 0.03 0.02 Immature Gran # (Auto) 0.02 0.04 POC Glucose 92 SARS-CoV-2, RNA, NAAT Blood Type Antibody Screen Crossmatch 03/28/22 05:42 WBC RBC Hgb 10.1 L Hct 29.7 L MCV MCH MCHC RDW Std Deviation RDW Coeff of Anselmo Plt Count MPV Immature Gran % (Auto) Neut % (Auto) Lymph % (Auto) [place] % (Auto) Eos % (Auto) Baso % (Auto) Neut # (Auto) Lymph # (Auto) [place] # (Auto) Eos # (Auto) Baso # (Auto) Immature Gran # (Auto) POC Glucose SARS-CoV-2, RNA, NAAT Blood Type Antibody Screen Crossmatch
[2022-03-29] MEDS: IBUPROFEN 600 MG TAB PO PRN ×2 (06:15→12:01)
--- NOTE | 2022-03-29 08:40 | Obstetrical Progress Note ---
Date of Service March 29, 2022 Assessment & Plan Admission and Anticipated Discharge Date Admission Date: March 26, 2022 Subjective Patient is seen and examined. She feels well, no complaints. Pain is under control with oral meds. Ambulating without dizziness Voiding without difficulty Tolerating regular diet with out N&V Flatus + BM + Bleeding is minimal No fever/ chills/ CP/ SOB/ N&V/ Leg pain Breast feeding without problems Vital Signs Temp Pulse Resp BP Pulse Ox O2 Del Method 03/28/22 23:20 36.6 C 100 H 18 130/75 98 Room Air 03/28/22 20:55 36.6 C 101 H 18 130/78 98 Room Air 03/28/22 16:05 36.4 C L 97 H 18 124/74 97 Room Air 03/28/22 08:50 36.6 C 103 H 16 122/75 96 Room Air Intake and Output 03/28/22 03/29/22 03/29/22 22:59 06:59 14:59 Intake Total 100 / 100 Balance 100 / 100 Intake: IV 100 / 100 Acetaminophen 1,000 mg In 100 100 / 100 ml @ 400 mls/hr IV Q8H PRN Rx#: [id number] Lab Results 03/26/22 03/26/22 03/26/22 Range/Units 05:50 05:53 06:06 WBC (4.8-10.8) K/ul RBC (4.20-5.40) M/uL Hgb (12.0-16.0) g/dl Hct (37.0-47.0) % MCV (80.0-100.0) fL MCH (25.0-34.0) pg MCHC (32.0-36.0) g/dL RDW Std Deviation (36.4-46.3) fL RDW Coeff of Anselmo (11.5-14.5) % Plt Count (130-400) K/uL MPV (9.4-12.4) fL Immature Gran % (Auto) % Neut % (Auto) % Lymph % (Auto) % [place] % (Auto) % Eos % (Auto) % Baso % (Auto) % Neut # (Auto) (1.40-6.50) K/uL Lymph # (Auto) (1.2-3.4) K/uL [place] # (Auto) (0.11-0.59) K/uL Eos # (Auto) (0-0.50) K/uL Baso # (Auto) (0-0.2) K/uL Immature Gran # (Auto) (0.01-0.20) K/uL POC Glucose 84 (70-99) mg/dl SARS-CoV-2, RNA, NAAT NEGATIVE (NEGATIVE) Blood Type O Positive Antibody Screen NEGATIVE Crossmatch See Detail 03/26/22 03/26/22 03/27/22 Range/Units 06:06 10:21 05:46 WBC 6.71 14.13 H (4.8-10.8) K/ul RBC 3.89 L 3.44 L (4.20-5.40) M/uL Hgb 11.4 L 10.1 L (12.0-16.0) g/dl Hct 33.5 L 29.7 L (37.0-47.0) % MCV 86.1 86.3 (80.0-100.0) fL MCH 29.3 29.4 (25.0-34.0) pg MCHC 34.0 34.0 (32.0-36.0) g/dL RDW Std Deviation 41.7 42.7 (36.4-46.3) fL RDW Coeff of Anselmo 13.3 13.5 (11.5-14.5) % Plt Count 253 209 (130-400) K/uL MPV 9.7 9.5 (9.4-12.4) fL Immature Gran % (Auto) 0.3 0.3 % Neut % (Auto) 63.2 83.1 % Lymph % (Auto) 25.3 9.3 % [place] % (Auto) 9.8 7.1 % Eos % (Auto) 1.0 0.1 % Baso % (Auto) 0.4 0.1 % Neut # (Auto) 4.23 11.74 H (1.40-6.50) K/uL Lymph # (Auto) 1.70 1.31 (1.2-3.4) K/uL [place] # (Auto) 0.66 H 1.00 H (0.11-0.59) K/uL Eos # (Auto) 0.07 0.02 (0-0.50) K/uL Baso # (Auto) 0.03 0.02 (0-0.2) K/uL Immature Gran # (Auto) 0.02 0.04 (0.01-0.20) K/uL POC Glucose 92 (70-99) mg/dl SARS-CoV-2, RNA, NAAT (NEGATIVE) Blood Type Antibody Screen Crossmatch 03/28/22 Range/Units 05:42 WBC (4.8-10.8) K/ul RBC (4.20-5.40) M/uL Hgb 10.1 L (12.0-16.0) g/dl Hct 29.7 L (37.0-47.0) % MCV (80.0-100.0) fL MCH (25.0-34.0) pg MCHC (32.0-36.0) g/dL RDW Std Deviation (36.4-46.3) fL RDW Coeff of Anselmo (11.5-14.5) % Plt Count (130-400) K/uL MPV (9.4-12.4) fL Immature Gran % (Auto) % Neut % (Auto) % Lymph % (Auto) % [place] % (Auto) % Eos % (Auto) % Baso % (Auto) % Neut # (Auto) (1.40-6.50) K/uL Lymph # (Auto) (1.2-3.4) K/uL [place] # (Auto) (0.11-0.59) K/uL Eos # (Auto) (0-0.50) K/uL Baso # (Auto) (0-0.2) K/uL Immature Gran # (Auto) (0.01-0.20) K/uL POC Glucose (70-99) mg/dl SARS-CoV-2, RNA, NAAT (NEGATIVE) Blood Type Antibody Screen Crossmatch PE: General: Alert, orientedx3, NAD CVS: S1S2 RRR Lungs; CTAB Abd: soft, NT, ND, BS+, fundus firm, below Umbilicus Incision: Clean, dry, intact Perineum intact, Lochia rubra minimal Ext; NT, no edema AP: 36 yo s/p C Section, pod# 3 VSS Afebrile doing well Continue routine postop care Encourage ambulation, PO intake All questions were answered D/C home , f/u in office Results & Data ([facility]) Vital Signs (Past 12 Hours) Vital Signs Temp Pulse Resp BP Pulse Ox O2 Del Method 03/28/22 23:20 36.6 C 100 H 18 130/75 98 Room Air 03/28/22 20:55 36.6 C 101 H 18 130/78 98 Room Air
[2022-03-29] MEDS: SIMETHICONE 80 MG CHEW PO SCH ×2 (09:02→12:00)
[2022-03-29] MEDS: DOCUSATE SODIUM 100 MG CAP PO SCH (09:03)
[2022-03-29] MEDS: FERROUS SULFATE 325 MG TAB PO SCH (09:03)
[2022-03-29] MEDS: PRENATAL VITAMIN 1 TAB PO SCH (09:03)
[2022-03-29] MEDS: oxyCODONE/ACETAMINOPHEN 5mg/325mg TAB PO PRN (12:01)
--- NOTE | 2022-04-05 07:39 | Discharge Summary (DS) ---
DATE OF ADMISSION: 03/26/2022. DATE OF DISCHARGE: 03/29/2022. DETAILS OF ADMISSION: The patient is a 36-year-old G2, P1-0-0-1, at 39 weeks and 1 day of gestation, who was scheduled for a repeat with permanent sterilization on the day of 03/26/2022. She had the procedure done on the day of the admission as scheduled and delivered a viable female infant at 8:46 a.m., and her surgery was uncomplicated. See dictated operative note for details. In posto p period, the patient was doing well, vital signs stable, afebrile. She was breast and bottle feedin g. Her postop H and H was 10.1/29.7. The Gale was discontinued. She was ambulated. She was voidi ng without difficulty, tolerating regular diet, passing gas. She was ambulated. Her physical exam w as unremarkable. Her ISABELLE dressing was clean, dry and intact. Bleeding was minimal. Abdomen was so ft and nontender. On postoperative day #2, the patient was doing well, vital signs stable, afebrile, ambulating, tolerating regular diet, and on postop day #3, 03/29/2022, she was doing w ell, vital signs stable, afebrile, bleeding was minimal. Her repeat H and H was 10.1/29.7. Her inci josie was clean, dry and intact. Physical exam was unremarkable. She was discharged home on postoper ative day #3. Discharge instructions were given. Prescriptions were written for pain. She is to be seen in the office in a week for incision check. Job ID: [id number]
== END 2022-03-29 14:23 | disposition home or self-care (01) | DRG 785 ==
LOC: 4S1 05:35 → EDSTATUS 07:30 → 4E2 12:30
PROC: M.PPTLD (2022-03-26 07:30)